=== PATIENT | male | born 2005 | race Caucasian/White ===

== ENCOUNTER 2024-01-03 08:26 | Emergency (ER) | payer MEDICAID ==
[~2024-01-03] VITALS: Ht 182.9 cm; Wt 145.1 kg
[2024-01-03 09:38] LABS: APPEARANCE,URINE CLEAR (CLEAR); BILIRUBIN,URINE NEGATIVE (NEGATIVE); BLOOD, URINE NEGATIVE Ery/uL (NEGATIVE); COLOR,URINE YELLOW (YELLOW); KETONES,URINE NEGATIVE (NEGATIVE); LEUKOCYTE ESTERASE ,URINE NEGATIVE (NEGATIVE); NITRITE, URINE NEGATIVE (NEGATIVE); PROTEIN,URINE NEGATIVE (NEGATIVE); UGLUCOSE NEGATIVE (NEGATIVE); UROBILINOGEN,URINE 0.2 EU/dL (0.2)
[2024-01-03] MEDS ORDERED: IBUPROFEN 600 MG TABLET ONE (10:09)
[2024-01-03] MEDS: IBUPROFEN 400 MG TABLET PO ONE (10:15)
[2024-01-03] MEDS ORDERED: IBUP-1953 PO (11:21)
[2024-01-03] MEDS ORDERED: ACET-868 PO (11:21)
[2024-01-03 11:49] VITALS: BP 142/88; TEMP 98.4; O2SAT 97
== END 2024-01-03 11:51 | disposition home or self-care (01) ==
LOC: ER 08:37
DX: N50.3 Cyst of epididymis (principal)
CPT/HCPCS: 76870-TC